=== PATIENT | male | born 1955 | race Caucasian/White ===

== ENCOUNTER 2016-10-02 13:10 | Day surgery (SDC) | payer OTHER, MEDICAID ==
[~2016-10-02] VITALS: Ht 172.7 cm; Wt 105.3 kg
[~2016-10-02 13:10] MED LIST: ASPI81 PO; ENOX40P SQ; FURO1TAB93 PO; HUMALOG SQ; IMDU30TA PO; KLOR20TA6 PO; LEVEMIR SQ; LISI-590 PO; LORT5TAB PO; METO50TA PO; NIAC500 PO; NIAS10004 PO; SPIR50TA PO; SUPETAB30 PO; VITA400C28 PO; ZOCO40TA PO
[2016-10-02] MEDS ORDERED: LACTATED RINGER'S 1000 ML IV SCH (14:00)
[2016-10-02] MEDS: SODIUM CHLORID 0.9% 500 ML IV SCH (14:00)
[2016-10-02] MEDS ORDERED: NS 1000 ML IV SCH (14:00)
[2016-10-02] MEDS ORDERED: POVIDONE IODINE 5% (ANTISEPSIS KIT) 4 APPLICATIONS EACH NARE SCH (14:15)
[2016-10-02] MEDS ORDERED: ceFAZolin 2 GM PREMIX 50 ML IV SCH (14:15)
[2016-10-02] MEDS ORDERED: CHLORHEXIDINE GLUCONATE 2 % 1 PACK (2 CLOTHS) TOP SCH (14:15)
[2016-10-02] MEDS ORDERED: VANCOMYCIN 1000 MG/NS 250 ML IV SCH ×2 (14:15)
[2016-10-02] MEDS ORDERED: MUPIROCIN 2% OINT 1 APPLIC/GM SYR NASAL SCH (14:15)
[2016-10-02] MEDS ORDERED: LORazepam 1 MG TAB SL SCH (14:15)
[2016-10-02] MEDS ORDERED: METOPROLOL TARTRATE 25 MG TAB PO PRN (14:30)
[2016-10-02] MEDS ORDERED: INSULIN HUMAN REGULAR 1,000 UNITS/10 ML VIAL SQ PRN (14:30)
[2016-10-02 14:36] VITALS: BP 139/88; PULSE 95; RESP 18; TEMP 98.2; O2SAT 93
[2016-10-02] MEDS ORDERED: NIAC1TAB PO (14:59)
[2016-10-02] MEDS ORDERED: POTA10SO12 PO (14:59)
[2016-10-02] MEDS ORDERED: SITA1TAB2 PO (14:59)
[2016-10-02] MEDS ORDERED: DIGO0.25 PO (14:59)
[2016-10-02] MEDS ORDERED: LISI2.5T3 PO (14:59)
[2016-10-02] MEDS ORDERED: SPIR50TA PO (14:59)
[2016-10-02] MEDS ORDERED: METO25TA6 PO (14:59)
[2016-10-02] MEDS ORDERED: APIX2.5T PO (14:59)
[2016-10-02] MEDS ORDERED: ZOCO40TA PO (14:59)
[2016-10-02] MEDS ORDERED: ISOS30TA3 PO (14:59)
[2016-10-02] MEDS ORDERED: GLIM4TAB PO (14:59)
[2016-10-02 15:16] LABS: AUTOMATED NEUTROPHIL # 3.6 TH/MM3 (1.8-7.7); BASOPHIL # 0.1 TH/MM3 (0-0.2); BASOPHIL % 0.8 % (0.0-2.0); EOSINOPHIL # 0.3 TH/MM3 (0-0.4); EOSINOPHIL % 5.1 % (0.0-4.0); HEMATOCRIT 42.9 % (39.0-51.0); HEMO FLAGS DIFF FINAL; LYMPH % 25.6 % (9.0-44.0); LYMPHOCYTE # 1.6 TH/MM3 (1.0-4.8); MEAN CORPUSCULAR HEMOGLOBIN 27.3 PG (27.0-34.0); MEAN CORPUSCULAR HGB CONC 34.1 % (32.0-36.0); MONO % 11.3 % (0.0-8.0); NEUT % 57.2 % (16.0-70.0); PLATELET COUNT 143 TH/MM3 (150-450); RED BLOOD COUNT 5.36 MIL/MM3 (4.50-5.90); RED CELL DISTRIBUTION WIDTH 14.4 % (11.6-17.2); WHITE BLOOD COUNT 6.3 TH/MM3 (4.0-11.0)
[2016-10-02 15:37] LABS: BICARBONATE 28.1 MEQ/L (21.0-32.0)
[2016-10-02 15:38] LABS: APTT (PATIENT) 26.4 SEC (24.3-30.1); PROTHROMBIN TIME - PATIENT 11.4 SEC (9.8-11.6)
[2016-10-02] MEDS ORDERED: PROPOFOL 200 MG/20 ML AMP IV ONE (19:28)
[2016-10-02] MEDS ORDERED: MIDAZOLAM HCL 2 MG/2 ML VIAL ONE (19:36)
[2016-10-02 20:30] VITALS: BP 116/78; PULSE 85; O2SAT 94
[2016-10-02] MEDS ORDERED: ATROPINE SULFATE 1 MG/ML VIAL IV PRN (20:30)
[2016-10-02] MEDS ORDERED: BACITRACIN OINT 0.9 GM PKT TOP ONE (20:30)
[2016-10-02] MEDS ORDERED: SODIUM CHLOR 0.9% 250 ML INJ 250 ML IV PRN (20:30)
[2016-10-02] MEDS ORDERED: METOCLOPRAMIDE HCL 10 MG/2 ML VIAL IV PRN (20:30)
[2016-10-02] MEDS ORDERED: LORazepam 2 MG/ML VIAL IV PRN (20:30)
[2016-10-02] MEDS ORDERED: LIDOCAINE HCL 1% 50 ML VIAL INFIL PRN (20:30)
[2016-10-02] MEDS ORDERED: oxyCODONE/ACETAMINOPHEN 5 MG/325 MG TAB PO PRN ×2 (20:30)
[2016-10-02] MEDS ORDERED: ONDANSETRON HCL 4 MG/2 ML VIAL IV PRN (20:30)
[2016-10-02] MEDS ORDERED: NIACIN 500 MG EXTENDED RELEASE TAB PO SCH (21:00)
[2016-10-02] MEDS ORDERED: PILL SPLITTER OTHER PRN (21:00)
[2016-10-02] MEDS: APIXABAN 2.5 MG TABLET PO SCH (21:47)
[2016-10-02 22:25] VITALS: PULSE 91
[2016-10-02 23:00] VITALS: PULSE 88
[2016-10-02 23:41] VITALS: PULSE 90
[2016-10-03] VITALS (11 sets, daily range): BP systolic 109–130; BP diastolic 73–87; PULSE 82–103; RESP 14; TEMP 97.6–98.5; O2SAT 95–96
[2016-10-03] MEDS: SODIUM CHLORID 0.9% 500 ML IV SCH (06:40)
[2016-10-03] MEDS ORDERED: GLIMEPIRIDE 4 MG TAB PO SCH (07:00)
[2016-10-03 07:07] LABS: APTT (PATIENT) 25.6 SEC (24.3-30.1); PROTHROMBIN TIME - PATIENT 11.4 SEC (9.8-11.6)
--- NOTE | 2016-10-03 07:50 | PD.CARD.PN ---
Subjective Subjective Remarks Feels ok. Objective Medications Current Medications Medications (Trade) Dose Ordered Sig/Michelle Route Start Time Stop Time Status Last Admin Sodium Chloride 1,000 ml @ 30 mls/hr Q24H IV 10/02/16 14:00 Lactated Ringer's 1,000 ml @ 30 mls/hr Q24H IV 10/02/16 14:00 (NS 500 ml Inj) 500 ml @ 30 mls/hr [id number] IV 10/02/16 14:00 10/03/16 13:59 (Percocet 5-325 Mg) 1 tab Q4H PRN PO 10/02/16 20:30 (Percocet 5-325 Mg) 2 tab Q4H PRN PO 10/02/16 20:30 (Ativan Inj) 0.5 mg UNSCH PRN IV 10/02/16 20:30 10/03/16 20:29 Atropine Sulfate 0.5 mg 0.5 mg UNSCH PRN IV 10/02/16 20:30 (NS 250 ml Inj) 250 ml @ 500 mls/hr ONCE PRN IV 10/02/16 20:30 10/03/16 20:29 (Reglan Inj) 10 mg Q4H PRN IV 10/02/16 20:30 (Zofran Inj) 4 mg Q4H PRN IV 10/02/16 20:30 (Xylocaine 1% Inj (50 ml)) 10 ml UNSCH PRN INFIL 10/02/16 20:30 10/03/16 20:29 (Eliquis) 2.5 mg BID PO 10/02/16 21:00 10/02/16 21:47 (Amaryl) 4 mg BIDAC PO 10/03/16 07:00 10/03/16 06:12 (Imdur) 30 mg DAILY PO 10/03/16 09:00 (Prinivil) 2.5 mg DAILY PO 10/03/16 09:00 (Toprol Xl) 25 mg DAILY PO 10/03/16 09:00 (Slo-Niacin) 1,000 mg HS PO 10/02/16 21:00 10/02/16 21:47 (KCl 40 Meq/30 ml Liq) 20 meq DAILY PO 10/03/16 09:00 (Januvia) 100 mg DAILY PO 10/03/16 09:00 (Aldactone) 50 mg DAILY PO 10/03/16 09:00 (Pravachol) 80 mg DAILY PO 10/03/16 09:00 (Pill Splitter) 1 ea UNSCH PRN OTHER 10/02/16 21:00 Vital Signs / I&O Vital Signs Date Time Temp Pulse Resp B/P Pulse Ox O2 Delivery O2 Flow Rate FiO2 10/03/16 06:35 88 10/03/16 05:00 82 10/03/16 04:23 87 10/03/16 04:00 98.5 88 109/73 96 10/03/16 03:00 92 10/03/16 02:00 90 10/03/16 01:00 84 10/03/16 00:05 98.5 88 109/73 96 10/03/16 00:00 86 10/02/16 23:41 90 10/02/16 23:00 88 10/02/16 22:25 91 10/02/16 20:30 85 116/78 94 10/02/16 14:36 98.2 95 18 139/88 93 I/O 10/02/16 10/02/16 10/02/16 10/03/16 10/03/16 10/03/16 07:00 15:00 23:00 07:00 15:00 23:00 Intake Total 480 ml Balance 480 ml Intake Oral 480 ml # Voids 2 # Bowel Movements 0 Physical Exam GENERAL: Well-nourished, well-developed patient. SKIN: Warm and dry. Groin sites soft with no hematoma or bleeding. HEAD: Normocephalic. EYES: No scleral icterus. No injection or drainage. NECK: Supple, trachea midline. No JVD or lymphadenopathy. CARDIOVASCULAR: Regular rate and rhythm without murmurs, gallops, or rubs. RESPIRATORY: Breath sounds equal bilaterally. No accessory muscle use. GASTROINTESTINAL: Abdomen soft, non-tender, nondistended. EXTREMITIES: No cyanosis, or edema. NEUROLOGICAL: Awake, alert, and oriented x 3. Non-focal. Laboratory Laboratory Tests Test 10/02/16 10/03/16 14:00 06:25 White Blood Count 6.3 TH/MM3 Red Blood Count 5.36 MIL/MM3 Hemoglobin 14.6 GM/DL Hematocrit 42.9 % Mean Corpuscular Volume 80.0 FL Mean Corpuscular Hemoglobin 27.3 PG Mean Corpuscular Hemoglobin 34.1 % Concent Red Cell Distribution Width 14.4 % Platelet Count 143 TH/MM3 Mean Platelet Volume 8.2 FL Neutrophils (%) (Auto) 57.2 % Lymphocytes (%) (Auto) 25.6 % Monocytes (%) (Auto) 11.3 % Eosinophils (%) (Auto) 5.1 % Basophils (%) (Auto) 0.8 % Neutrophils # (Auto) 3.6 TH/MM3 Lymphocytes # (Auto) 1.6 TH/MM3 Monocytes # (Auto) 0.7 TH/MM3 Eosinophils # (Auto) 0.3 TH/MM3 Basophils # (Auto) 0.1 TH/MM3 CBC Comment DIFF FINAL Differential Comment Prothrombin Time 11.4 SEC 11.4 SEC Prothromb Time International 1.0 RATIO 1.0 RATIO Ratio Activated Partial 26.4 SEC 25.6 SEC Thromboplast Time Sodium Level 139 MEQ/L Potassium Level 4.0 MEQ/L Chloride Level 104 MEQ/L Carbon Dioxide Level 28.1 MEQ/L Anion Gap 7 MEQ/L Blood Urea Nitrogen 13 MG/DL Creatinine 0.94 MG/DL Estimat Glomerular Filtration 82 ML/MIN Rate Random Glucose 227 MG/DL Calcium Level 9.4 MG/DL Blood Type AB POSITIVE Antibody Screen NEGATIVE Assessment and Plan Problem List: (1) Atrial flutter Assessment and Plan: No recurrence overnight s/p ablation. (2) S/P ablation of atrial flutter Assessment and Plan: NSR on tele, groin sites stable. DC home, f/u with Dr. Tse in 3 weeks, continue Eliquis. Assessment and Plan D/W pt., RN, Dr. Tse. Problem Qualifiers (1) Atrial flutter: Qualified Code: I48.92 - Atrial flutter, unspecified type Amita Chakraborty Oct 03, 2016 07:50
[2016-10-03] MEDS ORDERED: GLUCAGON 1 MG/ML VIAL OTHER PRN (08:00)
[2016-10-03] MEDS ORDERED: DEXTROSE 50% IN WATER 50 ML VIAL(D50) IV PUSH PRN (08:00)
[2016-10-03] MEDS: APIXABAN 2.5 MG TABLET PO SCH (08:14)
[2016-10-03] MEDS ORDERED: LISINOPRIL 5 MG TAB PO SCH (09:00)
[2016-10-03] MEDS ORDERED: PRAVASTATIN SOD 80 MG TAB PO SCH (09:00)
[2016-10-03] MEDS ORDERED: ISOSORBIDE MONONITRATE 30 MG TAB PO SCH (09:00)
[2016-10-03] MEDS ORDERED: METOPROLOL SUCCINATE 25 MG EXTENDED RELEASE TAB PO SCH (09:00)
[2016-10-03] MEDS ORDERED: SPIRONOLACTONE 50 MG TAB PO SCH (09:00)
[2016-10-03] MEDS ORDERED: POTASSIUM CL 40 MEQ/30 ML LIQ UDC PO SCH (09:00)
[2016-10-03] MEDS ORDERED: INSULIN ASPART SUPPLEMENTAL SCALE SQ SCH (11:00)
--- NOTE | 2016-10-03 21:12 | EKG ---
Date Performed: 10/02/2016 Time Performed: 15:06:22 PTAGE: 61 years EKG: Atrial flutterwith controlled ventricular response. Nonspecfic ST-T wave change. Abnormal E CG NO PREVIOUS TRACING DOCTOR: Marbin Bee Interpretating Date/Time 10/03/2016 21:11:44
--- NOTE | 2016-10-03 21:13 | EKG ---
Date Performed: 10/02/2016 Time Performed: 22:45:08 PTAGE: 61 years EKG: Sinus rhythm with borderline 1st degree A-V block Inferior T wave changes are nonspecific When compared to previo us tracing, rhythm has converted from Atrial flutter to sinus rhythm. Borderline ECG PREVIOUS TRACING : 10/02/2016 15.06 DOCTOR: Marbin Bee Interpretating Date/Time 10/03/2016 21:12:44
--- NOTE | 2016-10-03 21:15 | EKG ---
Date Performed: 10/03/2016 Time Performed: 03:08:58 PTAGE: 61 years EKG: Sinus rhythm with 1st degree A-V block Low QRS voltages in precordial leads When compared to previous tracing, no significant change. Abnormal ECG PREVIOUS TRACING : 10/02/2016 22.45 DOCTOR: Marbin Bee Interpretating Date/Time 10/03/2016 21:13:30
--- NOTE | 2016-11-02 22:59 | PD.CARD ---
Atrial Flutter PROCEDURE DATE: Oct 02, 2016 PROCEDURE PERFORMED Electrophysiology study, CS cannulation, 3-D mapping, radiofrequency ablation of atrial flutter, repeat electrophysiology study on Isuprel infusion. INDICATIONS FOR PROCEDURE Mr. Gomez is a 61-year-old male with history of atrial flutter, symptomatic, on anticoagulation, electrophysiology study and ablation. The risks, the nature and the benefit of the procedure are clearly stated to him. The risks include pneumothorax, cardiac perforation, stroke and even . The patient understood and agreed to proceed. PROCEDURE After written informed consent was obtained, the patient was brought to the EP lab where he was prepped and draped in the usual sterile fashion. Conscious sedation was initiated and maintained throughout the procedure by the anesthesiologist. Once sedation was verified, the left and right inguinal area was anesthetized with 2% Xylocaine. Using modified Seldinger technique, the left femoral vein was cannulated on three occasions, three guidewires were advanced over the wire. Three 5-Malagasy Hemaquets were advanced. Then the right femoral vein was cannulated on two occasions; two guidewire were advanced over the wire. A 6 and an 8-Malagasy Hemaquet were advanced. Then under fluoroscopic guidance through the 5 and 6 -Malagasy Hemaquet, four 5-Malagasy Alysha curved quadripolar electrophysiology catheters were advanced and placed and the His, upper right atrium, coronary sinus and right ventricular apex. Basic interval was measured. The patient was in atrial flutter. Cycle length was around 250 milliseconds.Entrainment was performed. It was positive. Then through the 8-Malagasy Hemaquet, a Cordis Argueta 8-mm F-curved mapping and radiofrequency ablation catheter was advanced. Using Honestly Now endocardial solution mapping system, a three-dimensional configuration of the right atrium was obtained. Points were taken at the SVC, IVC, TV6, CS and His. Then the catheter was placed at the critical isthmus. Radiofrequency energy was delivered. Cycle length prolonged, subsequently converted into sinus rhythm. Further burn was delivered in the area. Then Isuprel infusion was initiated. No tachyarrhythmia was induced. At that point the procedure was complete. All catheters were removed. The patient is going to be transferred to the recovery room. That was a very difficult case. The patient unable to tolerate flat bed. Blood loss minimal. 1. Electrocardiogram: At baseline the patient was in atrial flutter. Postprocedure the patient is in sinus rhythm. 2. Basic Interval: Base cycle length was around 620 milliseconds. Post- ablation it was around 180 seconds. AH, was around 116, HV was around 62 milliseconds. 3. Atrial Pacing Protocol: No tachyarrhythmia was induced post ablation. 4. Tachyarrhythmia: Atrial flutter was mapped and ablated. Ablation was successful. CONCLUSION Successful electrophysiology study, mapping, radiofrequency of atrial flutter. COMMENT AND RECOMMENDATIONS The patient is going to be transferred to the recovery room. He will be observed, when stable can be discharged home. Alla Tse MD Nov 02, 2016 22:59
== END 2016-10-03 09:40 | disposition home or self-care (01) ==
LOC: HDOC 13:10 → HDIC 13:11 → HCIS 20:49 → HDOC 10-03 09:40
PROVIDERS: ATTEND Internal Medicine Interventional Cardiology
DX: I48.92 Unspecified atrial flutter (principal); R94.31 Abnormal electrocardiogram [ECG] [EKG]; E11.9 Type 2 diabetes mellitus without complications; Z79.01 Long term (current) use of anticoagulants; Z79.84 Long term (current) use of oral hypoglycemic drugs
CPT/HCPCS: 80048; 82948; 85025; 85610; 85730; 86850; 86900; 86901; 93005; 93613; 93623; 93653; C1730; C1732; C2630; J1815; J2250; J3010